=== PATIENT | female | born 1965 | race Hispanic/Latino ===

== ENCOUNTER 2023-03-03 07:11 | Emergency (ER) | payer BC ==
--- OUTSIDE RECORDS SUMMARY | 2023-03-03 07:15 | XMS REPORT | Continuity of Care Document ---
:[address] [facility] t Address [address] [place] [address] Care Team Providers Name Role Phone No MD, Pcp Primary Care Physician Unavailable SHAZIA PATEL Attending Clinician Unavailable Belkis Clancy APRN Attending Clinician [phone] Payers Payer Name Policy Type Policy Number Effective Date Expiration Date S ource GENERIC BCBS [id number] 2019 2019 00:00:00 00:00:00 [place] [id number] 2021 OUT OF STATE 00:00:00 Problems This patient has no known problems. Allergies, Adverse Reactions, Alerts Allergy Allergy Status Severity Reaction(s) Onset Inactive Treating Comm ents Source Name Type Date Date Clinician Penicill DA Active U 2018-08 [facility] 2[facility]17 [facility] [place] Social History Social Habit Start Date Stop Date Quantity Comments Source Sexual orientation Method ist [facility] identity [facility] Tobacco use and 2023-03-02 2023-03-02 Smokeless [facility] exposure 00:00:00 00:00:00 tobacco non-user Hospital Alcohol intake 2023-03-02 2023-03-02 Current drinker [facility] 00:00:00 00:00:00 of alcohol Hospital (finding) History of Social 2023-03-02 2023-03-[address] function 00:00:00 00:00:00 Hospital Exposure to 2022-12-31 2023-01-10 Not sure [facility] SARS-CoV-2 (event) 00:00:00 10:21:00 Sex Assigned At [birth year] [facility] 00:00:00 00:00:00 Hospital Smoking Status Start Date Stop Date Source Never smoked tobacco [facility] Medications Ordered Filled Start Stop Current Ordering Indication Dosage Frequency Signature Comments Components Source Medication Medication Date Date Medication? Clinician (SIG) Name Name tirzepatide Yes 10mg Q1W Inject 0.5 Methodi (Mounjaro) 7-12 mL ([address] 10 mg/0.5 13:48: total) Hospit a mL pen 51 under the l injector skin every 7 days. Tuesdays / AM Sod Yes DISPENSE [facility] Picosulfate 4-21 [facility] -Mag Ox-Cit 00:00: Acd 00 (Clenpiq) 10-3.5-12 MG-GM -GM/160ML solution Immunizations Ordered Immunization Filled Immunization Date Status Commen ts Source Name Name PFIZER COVID-19 MRNA 2020-12-20 Completed Meth odist VACCINATION 00:00:00 [facility] PFIZER COVID-19 MRNA 2020-11-29 Completed Meth odist VACCINATION 00:00:00 Hospital Vital Signs Vital Name Observation Time Observation Value Comments Source Systolic blood 2022-12-06 21:26:00 122 mm[Hg] [facility] Diastolic blood 2022-12-06 21:26:00 75 mm[Hg] [facility] Heart rate 2022-12-06 21:26:00 66 /min [facility] Body temperature 2022-12-06 21:26:00 36.28 [facility] Respiratory rate 2022-12-06 21:26:00 12 /min [facility] Body height 2022-12-06 21:26:00 157.5 cm [facility] Body weight 2022-12-06 21:26:00 77.111 kg [facility] BMI 2022-12-06 21:26:00 31.09 kg/m2 [facility] Systolic blood 2023-03-02 18:46:00 126 mm[Hg] [facility] pressure Diastolic blood 2023-03-02 18:46:00 60 mm[Hg] [facility] pressure Heart rate 2023-03-02 18:46:00 70 /min [facility] Body temperature 2023-03-02 18:46:00 36.56 Yumiko [facility] Respiratory rate 2023-03-02 18:46:00 17 /min [facility] Body height 2023-03-02 18:46:00 157.5 cm [facility] Body weight 2023-03-02 18:46:00 76.658 kg [facility] BMI 2023-03-02 18:46:00 30.91 kg/m2 [facility] Oxygen saturation in 2023-03-02 18:46:00 98 /min [facility] Arterial blood by Pulse oximetry Procedures Procedure Date / Time Performing Clinician Source Performed TYPE AND SCREEN 2023-03-02 19:49:00 [facility] ECG PRE/POST OP 2023-03-02 19:43:22 [facility] URINE CULTURE 2023-03-02 19:39:00 [facility] URINALYSIS SCREEN AND 2023-03-02 19:39:00 [facility] MICROSCOPY, WITH REFLEX TO CULTURE HEMOGLOBIN A1C 2023-03-02 19:11:00 [facility] CBC WITH PLATELET AND 2023-03-02 19:11:00 [facility] DIFFERENTIAL COMPREHENSIVE METABOLIC 2023-03-02 19:11:00 [facility] [address] hong [facility] PANEL ESTIMATED GFR 2023-03-02 19:11:00 [facility] Plan of Care Planned Activity Planned Date Details Comments Source Future Scheduled Test 2023-03-[address] [facility] 06:39:02 malignant neoplasm of colon (procedure) [code = 111014038] Future Scheduled Test 2023-03-03 Screening for [facility] 06:39:02 malignant neoplasm of colon (procedure) [code = 762436593] Future Scheduled Test 2023-03-03 Screening for [facility] 06:39:02 malignant neoplasm of colon (procedure) [code = 417562880] Future Scheduled Test 2023-03-03 Hepatitis C screening [facility] 06:39:02 (procedure) [code = 233738283] Future Scheduled Test 2023-03-03 [facility] 06:39:02 malignant neoplasm of cervix (procedure) [code = 972077747] Future Scheduled Test 2023-03-03 BRE[facility] CANCER [facility] 06:39:02 SCREENING [code = BREAST CANCER SCREENING] Future Scheduled Test 2023-03-03 [facility] 06:39:02 malignant neoplasm of colon (procedure) [code = 833578087] Future Scheduled Test 2023-03-03 [facility] 06:39:02 malignant neoplasm of colon (procedure) [code = 350859891] Future Scheduled Test 2023-03-03 SHINGLES VACCINES (1 [facility] 06:39:02 of 2) [code = SHINGLES VACCINES (1 of 2)] Future Scheduled Test 2023-03-03 COVID-19 VACCINE (3 - [facility] 06:39:02 Pfizer series) [code = COVID-19 VACCINE (3 - Pfizer series)] Future Scheduled Test 2023-03-[address] [facility] 06:39:02 [code = INFLUENZA VACCINE] Future Appointment 2023-03-08 Shazia Patel MD, [address] [facility] 12:00:00 [facility]; [address], [place] [address] Future Appointment 2023-03-08 Shazia Patel MD, [address] [facility] 12:00:00 [facility]; [address], [place] [address] Future Appointment 2023-03-08 Belkis Clancy APRN [facility] 12:00:00 [address] [facility] 3rd floor; [address] [facility], [place] [address] Procedure 2023-03-08 RESECTION, COLON, LOW Method [facility] 17:00:00 ANTERIOR, LAPAROSCOPIC Procedure 2023-03-08 CYSTO STENT INSERTION Method [facility] 17:00:00 Encounters Start End Encounter Admission Attending Care Care Encounter Source Date/Time Date/Time Type Type Clinicians Facility Department ID 2022-12-21 Outpatient [facility] [id number] [place] 13:47:09 [id number] [facility] 2022-12-10 Outpatient [facility] [id number] [place] 09:02:06 [id number] [facility] 2022-12-07 Outpatient [facility] [id number] [place] 09:47:23 [id number] [facility] 2022-12-06 Outpatient [facility] [id number] [place] 15:58:03 [id number] [facility] 2022-12-02 Outpatient [facility] [id number] [place] 10:23:19 [id number] [facility] 2022-11-30 Outpatient [facility] [id number] [place] 15:41:28 [id number] [facility] 2022-11-29 Outpatient [facility] [id number] [place] 16:41:49 [id number] [facility] 2022-11-25 Outpatient [facility] [id number] [place] 10:49:40 [id number] [facility] 2023-03-08 2023-03-08 Outpatient SHAZIA PATEL [facility] [id number] [place] 12:00:00 12:00:00 [facility] 2023-03-02 2023-03-02 Pre-Admiss Shazia Patelquiana [id number] [facility]i 13:00:00 14:00:00 Belkis Vigil [address] Testing 3.430.2.7 Hospit a .3.492700 l .8 2023-03-02 2023-03-02 Outpatient SHAZIA PATEL [facility] [id number] [place] 00:00:00 00:00:[address] 2023-01-10 2023-01-10 Office Shazia Patel SATHISH GORDILLO [id number] [place] 16:15:00 17:38:25 Visit TOWER 350.1.13.58 He [facility] [id number] [id number] 2023-01-10 2023-01-10 Out[facility] [id number] [place] 16:15:00 16:15:00 Health 2023-01-07 2023-01-07 [facility] [id number] [place] 13:00:00 13:00:00 [facility] 2022-12-23 2022-12-23 Outpatient PATEL, [facility] [id number] [place] 12:30:00 12:30:00 [facility] 2022-12-06 2022-12-06 Office Patel, Shazia GORDILLO [id number] [place] 16:15:00 16:51:47 Visit TOWER 350.1.13.58 [facility] [id number] 2022-12-03 2022-12-03 Outpatient PATEL, SHAZIA [facility] [id number] [place] 11:15:00 11:15:00 Health Results Test Description Test Time Test Comments Results Result Comments Source Urine culture 2023-03-02 21:36:00 Test Item Value Reference Range Interpretation Comme nts Urine culture (test code = 9841334) SEE COMMENT Bacteriuria screen negative. Hindu ShantiUTERUS,OTHER THAN PROLAPSE/[id number] 16:05:00 RUN DATE: 08/09/19 [facility] PAGE 1 RUN TIME: 1716 Specimen Inquiry RUN USER: INTERFACE -PATIENT: CAMPOS HIDALGO LOC: SARAH Rodriguez #: [id number] AGE/SX: 53/F ROOM: [facility] RE08/08/19REG DR: Stan Kohler MD : 63 BED: A DIS: 08/09/19 STATUS: DIS Carlyle TLOC: SPEC #: [id number] RECD: 08/08/19 STATUS: SOUEmma REQ #: [id number] STEPHANIE: 08/08/19- SUBM DR: Stan Kohler MD ENTERED: 08/08/19 SP TYPE: UTERUSOTH OT DR: ORDERED: LEVEL V SURGICA CODES: C22316 - UTERUS, NOS PROCEDURES: LEVEL V SURGICA (Incomplete) TISSUES: UTERUS, NOS - UTERUS, CERVIX AND BILATERAL FALLOPIAN TUBES CLINICAL HISTORY 53 year old, menorrhagia (wpd) FINAL DIAGNOSIS Uterus, bilateral fallopian tubes, hysterectomy and bilateral salpingectomy: cervix - parakeratosis, no dysplasia identified endometrium - benign, proliferative phase myometrium - adenomyosis uterine serosa - no significant pathologic alteration right and left fallopian tubes - benign paratubal cysts CPT code(s): 05409 [facility] 08/09/19 GROSS DESCRIPTION ANATOMIC SOURCE OF TISSUE (per Requisition): Uterus, cervix, bilateral fallopian tubes The specimen is received in formalin in a container, labeled with the patient's name and designated "uterus, cervix, bilateral fallopian tubes". It consists of an 8.5 x 7 x 4.5 cm hysterectomy specimen with bilateral fallopian tubes with fimbriae attached. The uterus weighs 104 gm. The serosa is chris, smooth, and glistening and contains a 2.7 cm subserosal, nodular lesion in the left upper posterior wall. The cervical external os measures 1.1 cm. The portio vaginalis measures 2.9 cm. Blankbook Stitching Machine Operator sections are submitted in A1. The endometrium measures 0.2 cm and contains ill-defined, submucosal, firm lesions in both the anterior and posterior carter measuring up to 2.0 cm. The myometrium measures up to 2.7 cm thick and contains additional ill-defined, firm lesions measuring up to 3.5 cm and a 0.4 cm intramural, firm nodule in the lower anterior CONTINUED ON NEXT PAGE RUN DATE: 08/09/19 [facility] PAGE 2 RUN TIME: 1715 Specimen Inquiry RUN USER: INTERFACE SPEC #: [id number] PATIENT: CAMPOS HIDALGO #[id number] (Continued) GROSS DESCRIPTION (Continued) wall. Blankbook Stitching Machine Operator sections are submitted in A2 and A3. The right fallopian tube with fimbria measures 8 x 0.8 x 0.8 cm and contains a 1.5 cm semi-translucent paratubal cyst. The entire fimbria and two cross-sections of the tube with the cysts are subm itted in A4. The left fallopian tube with fimbria measures 8 x 0.5 x 0.5 cm and contains paratubal cysts measuring up to 0.8 cm and parafimbrial yellow tissue measuring up to 1.0 cm. The entire fimbriawith the yellow tissue and two cross- sections of the tube with the cysts are submitted in A5. ken/keron10/09/18 @ 1432 Signed Shelia Noland MD 08/09/19 1605 END OF REPORT [id number] 07:17:00 Test Item Value Reference Range Interpretation Comments GLUBED (test code = GLUBED) 106 mg/dL 65-110 N HGB [id number] 05:55:00 Test Item Value Reference Range Interpretation Comments HEMOGLOBIN (test code = HGB) 10.1 g/dL 10.7-13.9 L HEMATOCRIT (test code = HCT) 32.8 % 32.1-42.1 N [id number] 21:58:00 Test Item Value Reference Range Interpretation Comments GLUBED (test code = GLUBED) 131 mg/dL 65-110 H [id number] 10:55:00 Test Item Value Reference Range Interpretation Comments GLUBED (test code = GLUBED) 112 mg/dL 65-110 H [id number] 06:38:00 Test Item Value Reference Range Interpretation Comments GLUBED (test code = GLUBED) 83 mg/dL 65-110 N UR HCG [id number] 16:19:00 Test Item Value Reference Range Interpretation Comments UR HCG QUAL (test NEGATIVE 1. Very di lute urine code = HCGQLU) specimens, as indicated by a lowspecific g ravity, may not contain rep resentative levels ofhCG. 2 . False negative result s may occur when the levels of hCGare below the sensi tivity level of the test. If is still suspec guadalupe, a first morningurine sp ecimen should be colle cted 48 hours later and tested. Notes Date/Time Note Provider Source 2019-08-09 07:15:00-00:00 [facility] Robotic Assisted MOSAICIST Post Prog REPORT#:[id number] REPORT STATUS: Signed DATE:08/09/19 TIME: 714 PATIENT: CAMPOS HIDALGO UNIT #: [id number] ROOM/BED: [address] : 64 AGE: 53 SEX: F ATTEND: Yinka Kohler MD ADM AUTHOR: Stan Kohler MD * ALL edits or amendments must be made on the [employer]/computer document * General Post-op: day 1 Status post robotic assisted: TLH/Bilat. Salping ectomy, SOLYX SLING Subjective Patient reports: Yes: complaints, ambulating, flatus/bowel movement, pain controlled, tolerating diet. No: abdominal pain, chills, fever, headach e, heartburn, nausea, pelvic pain, vaginal bleeding, voiding/urinating, vomit ing. Objective Physical Exam VS/I O Last Documented: Result Date Time Pulse Ox 97 08/09 423 B/P 106/66 08/09 423 B/P Mean 79.6 08/09 423 O2 Delivery Room air 08/09 423 Temp 98.8 08/09 423 Pulse 95 08/09 423 Resp 18 08/09 423 O2 Flow Rate 8.253841 08/08 1000 Vital Signs Date Temp Pulse Resp B/P B/P Mean Pulse Ox FiO2 08/08-08/09 97.7-98.8 83-96 12-24 97-130/53-77 76.2-94.9 10-100 24 hour I O ending at 0700: 08/09 0700 08/08 1900 Intake Total 3200.00 1150.00 Output Total 2575 1200 Balance 625.00 -50.00 Intake, IV 1550.00 1150.00 Intake, Oral 1400 Intake, Tube 250 Irrigant Number Voids 3 Output, 100 Estimated Blood Loss Output, Urine 2475 1200 Patient 75.6 kg Weight Weight Standing scale Measurement Method Patient Weight Weight (lb): 166 Weight (oz): 10.71 Weight (kg): 75.600 Medications: Active Meds + DC'd Last 24 Hrs Acetaminophen 650 MG Q6H PRN PRN PO Docusate Sodium 100 MG BID PRN PRN PO Hydrocodone Bitart/Acetaminophen 1 TAB ONCE ONE PO (DC) Hydrocodone Bitart/Acetaminophen 1 TAB Q4H PRN P O Ibuprofen 600 MG Q6H PRN PRN PO Lactated Ringer's 1,000 ML ASDIR IV Ondansetron HCl 4 MG Q6H PRN PRN IV Promethazine HCl 25 MG Q6H PRN PRN IM Simethicone 160 MG Q6H PRN PRN PO Glycopyrrolate 0 .STK-MED ONE .ROUTE (DC) Ketorolac Tromethamine 0 .STK-MED ONE .ROUTE (DC ) Neostigmine [place] 0 .STK-MED ONE .ROUTE (DC) Ondansetron HCl 0 .STK-MED ONE .ROUTE (DC) Fentanyl Citrate 0 .STK-MED ONE .ROUTE (DC) Hydrocodone Bitart/Acetaminophen 2 TAB ONCE PRN PO (DC) Hydromorphone HCl 0.5 MG PACU Q5MIN PRN PRN IV ( DC) Meperidine HCl 12.5 MG PACU ASDIR PRN PRN IV (DC ) Morphine Sulfate 4 MG PACU Q15MIN PRN PRN IV (DC ) Ondansetron Base 4 MG ONCE PRN SL (DC) Ondansetron HCl 4 MG PACU ONCE PRN IV (DC) Ondansetron HCl 4 MG ONCE PRN IV (DC) Promethazine HCl 12.5 MG PACU ONCE PRN IM (DC) Acetaminophen 1,000 MG PREOP PO (DC) Celecoxib 400 MG PREOP PO (DC) Gabapentin 400 MG PREOP PO (DC) Lactated Ringer's 1,000 ML PREOP IV (DC) Levofloxacin/Dextrose 100 ML PREOP IV (DC) Metronidazole/Sodium Chloride 100 ML PREOP IV (D C) Phenazopyridine HCl 100 MG PREOP PO (DC) General appearance: alert, awake Wound/incision: Location: ABDOMEN Site condition: edges approximated, no drainage , no ecchymosis, no erythema Abdomen: normal bowel sounds, non-tender, soft Extremities: no calf tenderness, no edema Results Findings/Data: Laboratory Tests 08/08 08/08 2146 1039 Chemistry POC Glucose (65 - 110 mg/dL) 131 H 112 H Laboratory Tests 08/09 0445 Hematology Hgb (10.7 - 13.9 g/dL) 10.1 L Hct (32.1 - 42.1 %) 32.8 Diagnosis, Assessment Plan Free Text A P: POD 1, R TLH BS, SOLYX SLING, CYSTOSCOPY. PAIGABBY T HAD URINARY RETENTION AFTER REMOVAL OF PRESCOTT. PRESCOTT REINSERTED LAST NIGHT, D C THIS AM WITH VOIDING TRIAL. PATIENT FAILED THE VOIDING T RIAL, WILL DC HOME WITH PRESCOTT AND LEG BAG. FOLLOW UP ON TUESDAY FOR PRESCOTT REMOVAL. PATIENT HAS DIABETES, CONTINUE METFORMIN. VITALS ARE NORMAL, LABS, I/O, H H REVIEWED. ABDOMEN IS SOFT, NON DISTENDED, NON TENDER. PLAN: DC HOME WITH PRESCOTT. at [address] [facility] #:[id number] END OF REPORT 2019-08-08 09:16:00-00:00 [facility] ([facility]) Full Op Note REPORT#:[id number] REPORT STATUS: Signed DATE:08/08/19 TIME: 915 PATIENT: CAMPOS HIDALGO UNIT #: [id number] ROOM/BED: : 64 AGE: 53 SEX: F ATTEND: Yinka Kohler MD ADM AUTHOR: Stan Kohler MD * ALL edits or amendments must be made on the el [employer]/computer document * Operative Report Start date: 08/08/19 Start time: 755 Pre-procedure diagnosis: MENORRHAGIA STRESS URINARY INCONTINENCE Post-procedure diagnosis: SAME Procedures performed: R TLH BS, SOLYX SLING, CYSTOSCOPY Technique/Procedure: The patient was taken to the operating r oom and was placed in supine position. General anesthesia was given and the patient was placed in dorsal lithotomy position. She was prepped and draped in a steril e fashion and a time out was performed. A prescott catheter was placed into the bladder and drained clear urine. An examination under anesthesia was performed. A we ighted speculum was placed in the vagina and the anterior vaginal wall was retracted with a Daley speculum. The anterior lip of the cervix w as grasped with a single-tooth tenaculum. The uterus sounded to 7 cm. The cervix was gradually dilate d and a LINA II uterine manipulator with a 6 cm tip was introduced into the cavity. The intracavitary balloon was inflated. The tenaculum and the weighted speculum were removed and the cervical cap was placed against the cervix. The vaginal occluder balloon was then inflated. Marcaine was infiltrated in the umbilicus and a 4 cm incision was made. The incision was extended throug h the fascia and peritoneum. An Jose retractor was introduced to retract the incision. A [employer] preloaded tieh trocars and AIrSeal was attached to the retractor. Pneuomperitoneum was created. The robotic camera was introduced throug the prot. The upper abdomen was inspected and then the patient was placed in deep Trendelenburg pos ition. The pelvic anatomy was inspected. Ports for the robotic arms were place d in the right and left lower abdomen and an assistant professor of art por t was introduced in the right mid abdomen. Pitressin was injected into the uterus for hemostasis. The robot was then docked. The left round ligament was coagulated and transected. The left mesosalpinx was coagulated and transected. The left ovarian liga ment was also coagulated and transected. The anterior leaf of the bro ad ligament was dissected to develop a bladder flap. The posterior leaf of the broad li gament was dissected to the level of the uterosacral ligament. The same proc edure was done on the right side. The bladder was completely mobilized past the superior aspect of the vagina. The uterine vessels were skeletonized bi laterally, coagulated, and transected. The parametrial tissue was also coag ulated and transected. A circumferential incision was made on the superior aspect of the vagina and the uterus and cervix were amputated. The uterus was delivered vaginally and w as sent for pathologic evaluation. The vaginal cuff was closed in a continuous running fashion using V-Loc suture. Airtight closure of the vagi nal cuff was confirmed. The intraperitoneal pressure was decreased and hemostasis was noted. The pelvis was irrigated. Both ureters were visualized and noted to be peristalsing. The robot was undocked. The pneumoperitoneum was evacuated and all ports were removed. The fascia at the umbilicus was reappro ximated with 0 Vicryl suture. The skin incisions were all closed with 3-0 Juniata cryl suture. The midurethra was identified by applyin g gentle traction to the Prescott. Saline was infilterated in the periureethral vaginal mu cosa for hydrodissection. A vertical incisin was made on the vaginal mucosa in the midline and dissection was carried out in the periurethral tiss ue to the pubic ramus. Solyx sling was introduced in the obturator fascia with appropri ate tensioning. The prescott catheter was remov ed and cystoscope was carefully introduced into the bladder. Careful examination of the bladder reve aled bilateral ureteral jets and no injury to the bladder . The cystoscope was removed and the prescott catheter was replaced. The patient tolerated the procedure well . General anesthesia was reversed, the patient was extubated and taken to the recovery room in good condition. All counts were correct x 2. The patient received Ancef for prophylactic antibiotics preoperatively. Primary Surgeon: Stan Kohler Shoeshiner(s): Rodolfo Morales Anesthesia: general anesthesia Operative findings: Normal upper abdomen, normal uterus, tubes, ovaries with left ovary adherent to the omentum. normal bladder interior with bilate ral ureteral jets Complications: none Estimated blood loss in ml's: 100 cc Specimens removed/altered: uterus with cervix, b oth fallopian tubes Drain(s)/tube(s): prescott Implant(s): none Fluids: 1000 cc Urine output: 200 cc Approach: laparoscopic Disposition: PACU Counts: Sponge count: correct at [address] [facility] #:[id number] END OF REPORT 2019-08-07 14:52:00-00:00 [id number] [facility] [address] [place], [place] [address] PATIENT NAME: CAMPOS HIDALGO ADMIT DATE: 07/22 04/09 ACCOUNT NO: [id number] ROOM NO: 2646 AGE: 53 SEX: F ADMITTING PHYSICIAN: Stan Kohler MD ATTENDING PHYSICIAN: Stan Kohler MD Order: [id number] Test Reason : PRE- OP Test Date/Time Stamp: TueAug 07 2019 14:52:57 Blood Pressure : / mmHG Vent. Rate : 065 BPM Atrial Rate : 065 BPM P-R Int : 168 ms QRS Dur : 074 ms QT Int : 426 ms P-R-T Axes : 042 020 025 degree s QTc Int : 443 ms Normal sinus rhythm Normal ECG No previous ECGs available Confirmed by ZULMA WOODS, KRYSTLE ([id number]) on 019 8:13:16 AM Referred By: Stan Kohler Confirmed by:KRYSTLE LEE MD Electronically Signed by Krystle Qureshi MD on 1 10/10/18 at 0813 PATIENT NAME: CAMPOS HIDALGO [id number]
[2023-03-03 07:50] LABS: Absolute Lymphocytes (CBC) 2.1 K/uL (0.7-4.9); Hematocrit 41.3 % (36.0-45.0); MCV 83.5 fL (80-100); MPV 10.4 fL (7.6-11.3); RBC Red Blood Cell Count 4.94 M/uL (3.86-4.86)
[2023-03-03 08:13] LABS: ALT/SGPT 36 U/L (13-56); AST/SGOT 52 U/L (15-37); Albumin 3.5 g/dL (3.4-5.0); Alkaline Phosphatase 86 U/L (45-117); BUN Blood Urea Nitrogen 12 mg/dL (7-18); Bicarbonate 26 mEq/L (21-32); Bilirubin Total 1.5 mg/dL (0.2-1.0); Glomerular Filtration Rate 104 ml/min (=/>90); Glucose Level 135 mg/dL (74-106); Lipase 65 U/L (13-75); Potassium 3.3 mEq/L (3.5-5.1); Protein, Total 7.4 g/dL (6.4-8.2); Sodium Level 139 mEq/L (136-145)
[2023-03-03 08:14] LABS: Troponin High Sensitivity < 3.0 pg/mL (<58.9)
--- NOTE | 2023-03-03 08:19 | RAD REPORT ---
EXAM DESCRIPTION: US - Abdomen Exam Limited - 03/03/2023 8:01 am CLINICAL HISTORY: Abdominal pain COMPARISON: CT abdomen pelvis 11/15/2022. TECHNIQUE: Sonographic grayscale and color flow images of the abdomen were obtained. FINDINGS: Gallbladder size is normal. Multiple echogenic shadowing gallstones. No wall thickening or pericholecystic fluid. Common bile duct is normal in caliber, 3 millimeter, With no common duct ston e identified. Visualized aspects of the liver show diffuse parenchymal hyperechogenicity suggesting steatosis. IMPRESSION: Cholelithiasis. No sonographic findings to suggest acute cholecystitis. Diffuse hepatic parenchymal hyperechogenicity suggesting steatosis.
--- NOTE | 2023-03-03 08:32 | ER ---
Nurse's Notes [facility] Name: Pao Hidalgo Age: 57 yrs Sex: Female : 1965 Arrival Date: 03/03/2023 Time: 07:11 Bed 20 Private MD: Tigre Brown Diagnosis: Biliary colic;Cholelithiasis Presentation: 03/03 07:25 Chief complaint: Patient states: woke up with pain between shoulder blades and iw radiating to RUQ, is due to have colon resection on Tuesday at [facility]. Coronavirus screen: At this time, the client does not indicate any symptoms associated with coronavirus-19. Ebola Screen: Patient negative for fever greater than or equal to 101.5 degrees Fahrenheit, and additional compatible Ebola Virus Disease symptoms Patient denies exposure to infectious person. Patient denies travel to an Ebola-affected area in the 21 days before illness onset. No symptoms or risks identified at this time. 07:25 Method Of Arrival: Ambulatory iw 07:28 Initial Sepsis Screen: Does the patient meet any 2 criteria? No. Patient's initial iw sepsis screen is negative. Does the patient have a suspected source of infection? No. Patient's initial sepsis screen is negative. Risk Assessment: Do you want to hurt yourself or someone else? Patient reports no desire to harm self or others. Onset of symptoms was March 03, 2023. 07:28 Acuity: OSMAN 3 iw Historical: - Allergies: 07:28 PENICILLINS; iw - Home Meds: 07:28 Mounjaro subcutaneous [Active]; iw - PMHx: 07:28 Diabetes mellitus; iw - PSHx: 07:28 hysterectomy; tubal ligation; iw - Immunization history:: Client reports receiving the 2nd dose of the Covid vaccine. - Social history:: Smoking status: Patient denies any tobacco usage or history of. Screenin:36 [facility] ED Fall Risk Assessment (Adult) History of falling in the last 3 months, ap3 including since admission No falls in past 3 months (0 pts). Abuse screen: Denies threats or abuse. Nutritional screening: No deficits noted. Tuberculosis screening: No symptoms or risk factors identified. Assessment: 07:46 General: Appears in no apparent distress. Behavior is calm, cooperative, appropriate ap3 for age. Pain: Complains of pain in thoracic area Pain radiates to right lower quadrant Pain began suddenly, 2 hours ago. Neuro: Level of Consciousness is awake, alert, obeys commands, Oriented to person, place, time, situation. Cardiovascular: Patient's skin is warm and dry. Respiratory: Airway is patent Respiratory effort is even, unlabored, Respiratory pattern is regular, symmetrical. Vital Signs: 07:25 BP 117 / 62; Pulse 70; Resp 16; Temp 98.1; Pulse Ox 98% on R/A; Weight 74.84 kg; Height iw 5 ft. 2 in. ; Pain 5/10; 08:04 BP 107 / 75; Pulse 65; Pulse Ox 96% on R/A; ap3 07:25 Body Mass Index 30.18 (74.84 kg, 157.48 cm) iw 07:25 Pain Scale: Adult iw ED Course: 07:12 Patient arrived in ED. am2 07:12 Tigre Brown MD is Private Physician. am2 07:17 Danielle Carrington MD is Attending Physician. sd2 07:28 Triage completed. iw 07:29 Arm band placed on. iw 07:34 Penny Howe, JU is Primary Nurse. ap3 07:36 Patient has correct armband on for positive identification. Bed in low position. Call ap3 light in reach. Adult w/ patient. threat monitoring analyst on. Pulse ox on. NIBP on. 07:36 Patient maintains SpO2 saturation greater than 95% on room air. ap3 07:46 Initial lab(s) drawn, by me, sent to lab. Inserted saline lock: 22 gauge in right ap3 antecubital area, using aseptic technique. Blood collected. 08:02 US Abdomen Limited: RUQ to eval gallbladder In Process Unspecified. EDMS 08:31 Danilo Kaur MD is Referral Physician. sd2 08:43 Provided Education on: discharge. ap3 08:43 No provider procedures requiring assistance completed. IV discontinued, intact, ap3 bleeding controlled, No redness/swelling at site. Pressure dressing applied. Administered Medications: No medications were administered Medication: 08:43 VIS not applicable for this client. ap3 Outcome: 08:31 Discharge ordered by . sd2 08:43 Discharged to home ambulatory, with family. ap3 08:43 Condition: good 08:43 Discharge instructions given to patient, family, Instructed on discharge instructions, follow up and referral plans. Demonstrated understanding of instructions, follow-up care. 08:43 Patient left the ED. ap3 Signatures: Dispatcher [employer] Char Alex RN RN iw Moreno, Amanda am2 Penny Howe RN RN ap3 Danielle Carrington MD MD sd2
--- NOTE | 2023-03-03 08:32 | EDPHYS ---
Physician Documentation [facility] Name: Pao Hidalgo Age: 57 yrs Sex: Female : 1965 Arrival Date: 03/03/2023 Time: 07:11 Bed 20 Private MD: Tigre Brown ED Physician Danielle Carrington HPI: 03/03 07:26 This 57 yrs old Female presents to ER via Unassigned with complaints of Chest sd2 Pain, Back Pain, Abdominal Pain. 07:26 57 yo F presents with CC of midsternal CP radiating to between her shoulder blades that sd2 then moved to the RUQ of her abdomen starting early this AM. Reports taking Tylenol at 0545 and has since improved. Denies associated fever, n/v/d or urinary symptoms. 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 She is scheduled to have a colon resection performed this upcoming Tuesday at [facility] for previous diverticulitis. States this does not feel similar. Last ate 2 fried chicken last night before bed. . Historical: - Allergies: 07:28 PENICILLINS; iw - Home Meds: 07:28 Mounjaro subcutaneous [Active]; iw - PMHx: 07:28 Diabetes mellitus; iw - PSHx: 07:28 hysterectomy; tubal ligation; iw - Immunization history:: Client reports receiving the 2nd dose of the Covid vaccine. - Social history:: Smoking status: Patient denies any tobacco usage or history of. ROS: 07:26 Constitutional: Negative for fever, chills, and weight loss, Eyes: Negative for injury, sd2 pain, redness, and discharge, Cardiovascular: Negative for chest pain, palpitations, and edema, Respiratory: Negative for shortness of breath, cough, wheezing. 07:26 MS/Extremity: Negative for injury and deformity, Skin: Negative for injury, rash, and discoloration, Neuro: Negative for headache, numbness and tingling. 07:26 Abdomen/GI: Positive for abdominal pain, Negative for nausea, vomiting, and diarrhea. Exam: 07:26 Constitutional: This is a well developed, well nourished patient who is awake, alert, sd2 and in no acute distress. Head/Face: Normocephalic, atraumatic. Eyes: EOMI, normal conjunctiva bilaterally Chest/axilla: Normal chest wall appearance and motion. Nontender with no deformity. Cardiovascular: Regular rate and rhythm with a normal S1 and S2. No gallops, murmurs, or rubs. 2+ distal pulses. Respiratory: Lungs have equal breath sounds bilaterally, clear to auscultation and percussion. No rales, rhonchi or wheezes noted. No increased work of breathing, no retractions or nasal flaring. Abdomen/GI: Soft, ND, mild TTP of RUQ with negative Garcia's sign, no rebound or guarding Back: No spinal tenderness. No costovertebral tenderness. Full range of motion. Skin: Warm, dry with normal turgor. Normal color with no rashes, no lesions, and no evidence of cellulitis. MS/ Extremity: Pulses equal, no cyanosis. Neurovascular intact. Full, normal range of motion. Ambulatory without difficulty. Psych: Awake, alert, with orientation to person, place and time. Behavior, mood, and affect are within normal limits. 07:46 ECG was reviewed by the Attending Physician. NSR, rate 76, no STEMI criteria sd2 Vital Signs: 07:25 BP 117 / 62; Pulse 70; Resp 16; Temp 98.1; Pulse Ox 98% on R/A; Weight 74.84 kg; Height iw 5 ft. 2 in. ; Pain 5/10; 08:04 BP 107 / 75; Pulse 65; Pulse Ox 96% on R/A; ap3 07:25 Body Mass Index 30.18 (74.84 kg, 157.48 cm) iw 07:25 Pain Scale: Adult iw MDM: 07:17 Patient medically screened. sd2 07:26 Differential diagnosis: reflux, AAA, dissection, ACS, GB pathology, diverticulitis, MSK sd2 among others. Data reviewed: vital signs, nurses notes. 07:46 Data reviewed: EKG. sd2 08:28 HEART Score: History: Slightly Suspicious (0), ECG: Normal (0), Age: > 45 and < 65 sd2 years (1), Risk Factors: 1 or 2 risk factors (1), Troponin: < or = 1 x Normal Limit (0), Total Score = 2. Data reviewed: lab test result(s), radiologic studies, ultrasound. Management of patient was discussed with the following: Geospatial Intelligence Analyst: Dr. Kaur, General Surgery. I considered the following discharge prescriptions or medication management in the emergency department Pain Medications: At this time, prescription pain medications are not recommended. Test considered but Not performed: CT: not indicated due to US providing results needed and normal labs. Counseling: I had a detailed discussion with the patient and/or guardian regarding: the historical points, exam findings, and any diagnostic results supporting the discharge/admit diagnosis, lab results, radiology results, the need for outpatient follow up, to return to the emergency department if symptoms worsen or persist or if there are any questions or concerns that arise at home. ED course: Discussed results with Dr. Kaur, who recommends discharge home. States he will call in meds for patient for home including GI cocktail and speak with her surgeon at [facility] to take her gallbladder out this upcoming Tuesday as well with her sigmoid colon resection. Pt and at advised of all results and plan for outpatient follow up. She is in agreement and pain is well controlled. Verbalizes understanding of discharge plan including dietary modifications and strict return precautions. . 03/03 07:24 Order name: CBC with Diff; Complete Time: 08:19 sd2 03/03 07:24 Order name: CMP; Complete Time: 08:19 sd2 03/03 07:24 Order name: Troponin High Sensitivity; Complete Time: 08:19 sd2 03/03 07:24 Order name: Lipase; Complete Time: 08:19 sd2 03/03 07:24 Order name: US Abdomen Limited: RUQ to eval gallbladder; Complete Time: 08:19 sd2 03/03 07:24 Order name: EKG - Nurse/Tech; Complete Time: 07:37 sd2 Administered Medications: No medications were administered Disposition Summary: 03/03/23 08:31 Discharge Ordered Location: Home sd2 Problem: new sd2 Symptoms: have improved sd2 Condition: Stable sd2 Diagnosis - Biliary colic sd2 - Cholelithiasis sd2 Followup: sd2 - With: Danilo Kaur MD - When: 2 - 3 days - Reason: Recheck today's complaints, Continuance of care Discharge Instructions: - Discharge Summary Sheet sd2 - Cholelithiasis sd2 - Gallbladder Eating Plan sd2 Forms: - Medication Reconciliation Form sd2 - Thank You Letter sd2 - Antibiotic Education sd2 - Prescription Opioid Use sd2 - Patient Portal [email or web address] sd2 Signatures: Dispatcher [employer] Char Alex RN RN iw Dunlop, Stephanie, MD MD sd2
[2023-03-03 08:49] VITALS: BP 107/75; TEMP 98.1; O2SAT 96
--- NOTE | 2023-03-04 12:52 | EKG ---
Test Date: 2023-03-03 Test Time: 07:36:02 Whiteprinting Machine Operator: [place] MEASUREMENT RESULTS: Intervals: Rate: 76 ND: 198 QRSD: 74 QT: 388 QTc: 436 [place]: P: 57 ND: 198 QRS: 3 T: 53 INTERPRETIVE STATEMENTS: Normal sinus rhythm Normal ECG Compared to ECG 01/01/2022 09:30:42 No significant changes Electronically Signed On 03-04-23 12:49:59 CDT by Wolf Haji
== END 2023-03-03 08:43 | disposition home or self-care (01) ==
LOC: ER 07:11
DX: K80.40 Calculus of bile duct with cholecystitis, unspecified, without obstruction (principal); R07.9 Chest pain, unspecified; E11.9 Type 2 diabetes mellitus without complications; Z79.4 Long term (current) use of insulin; Z88.0 Allergy status to penicillin
CPT/HCPCS: 36415; 76705; 80053; 83690; 84484; 85025; 93005; 99285

== ENCOUNTER 2023-05-25 19:09 | Inpatient (IN) | payer BC ==
--- OUTSIDE RECORDS SUMMARY | 2023-05-25 19:12 | XMS REPORT | Continuity of Care Document ---
:1965 Author Organization [facility] t Address [address] [place] [address] [place] [address] Care Team Providers Name Role Phone Kevin Caldwell MD, Tigre Glover Primary Care Physician [phone] SHAZIA PATEL Attending Clinician Unavailable Genet Guo RN Attending Clinician Unavailable Mini Faulkner MD Attending Clinician Belkis Clancy APRN Attending Clinician [phone] SHAZIA PATEL Admitting Clinician Unavailable Payers Payer Name Policy Type Policy Number Effective Date Expiration Date S ource GENERIC BCBS [id number] 2019 2019 00:00:00 00:00:00 [place] [id number] 2021 OUT OF STATE 00:00:00 Problems Condition Condition Condition Status Onset Resolution Last Treating Co mments Source Name Details Category Date Date Treatment Clinician Date Diverticul Diverticul Disease Active 0 M ethodi itis itis 18 00:00: Hospita 00 l Allergies, Adverse Reactions, Alerts Allergy Allergy Status Severity Reaction(s) Onset Inactive Treating Comm ents Source Name Type Date Date Clinician Penicill DA Active U 2018- [facility] [place] Social History Social Habit Start Date Stop Date Quantity Comments Source Gender identity [facility] Alcohol intake 2023-03-10 2023-03-10 .57 /d [facility] 00:[facility]:00:00 Hospital History of Social 2023-03-10 2023-03-[address] function 00:00:00 00:00:00 Hospital Tobacco use and 2023-03-02 2023-03-02 Smokeless [facility] exposure 00:00:00 00:00:00 tobacco non-user Hospital Exposure to 2022-12-31 2023-01-10 Not sure [facility] SARS-CoV-2 (event) 00:00:00 10:21:00 Sex Ass[birth year] At [birth year] [facility] 00:00:00 00:00:00 Hospital Smoking Status Start Date Stop Date Source Never smoked tobacco [facility] Medications Ordered Filled Start Stop Current Ordering Indication Dosage Frequency Signature Comments Components Source Medication Medication Date Date Medication? Clinician (SIG) Name Name tirzepatide 2022- No 10mg Q1W Inject 0.5 [facility] (Mounjaro) 7-20 07-20 mL ([address] 10 mg/0.5 13:22: 00:00 total) Hospi ta mL pen 17 :00 under the l injector skin every 7 days. Tuesdays / HYDROcodone Yes [id number] 1{tbl} Q6H Take 1 UT -acetaminop 7-20 tablet by Hea [facility] ([place]) 00:00: mouth 5-325 MG 00 every 6 tablet (six) hours if needed for severe pain. HYDROcodone Yes [id number] 1{tbl} Q6H Take 1 UT -acetaminop 7-20 tablet by Iron.ioa lt hen ([place]) 00:00: mouth 5-325 MG 00 every 6 tablet (six) hours if needed for severe pain. acetaminoph 2022- No 500mg Q4H Take 1 Me thodi en 7-20 08-[address] (TYLENOL) 00:00: 04:59 (500 mg [facility] 500 MG 00 :00 total) by l tablet mouth every 4 (four) hours for 30 days. gabapentin 2022- No 300mg Q.[id number] Take 1 [facility] (NEURONTIN) 03-[id number] 300 mg 00:00: 04:59 3D (300 mg Hospita capsule 00 :00 total) by l mouth 3 (three) times a day for 30 days. methocarbam 2022- No 500mg Q.25D Take 1 M ethodi oL 03-[address] (ROBAXIN) 00:00: 04:59 (500 mg [facility] 500 MG 00 :00 total) by l tablet mouth 4 (four) times a day for 30 days. enoxaparin 2022- No 40mg QD Inject 0.4 [facility] (LOVENOX) 03-10 08-18 mL ([address] 40 mg/0.4 00:00: 04:59 total) Hospi ta mL syringe 00 :00 under the l skin daily for 28 days. ciprofloxac 2022- No 500mg Q.5D Take 1 Me thodi in (Cipro) 03-[address] 500 MG 00:00: 04:59 (500 mg Hospita tablet 00 :00 total) by l mouth 2 (two) times a day for 10 days. tirzepatide Yes 10mg Q1W Inject 0.5 [facility] (Mounjaro) 7-12 mL ([address] 10 mg/0.5 13:48: total) Hospit a mL pen 51 under the l injector skin every 7 days. Tuesdays / Na Yes [id number] DISPENSE [facility] Sulfate-K 02-25 ONE KIT Health Sulfate-Mg 00:00: Sulf 00 (Suprep Bowel Prep Kit) 17.5-3.13-1 .6 GM/177ML solution metroNIDAZO Yes [id number] Take ONE UT LE (Flagyl) 02-25 TAB by Health 500 MG 00:00: mouth at tablet 00 1:00pm, 2:00pm and at 8:00PM on the day prior to surgery Na Yes [id number] DISPENSE [facility] Sulfate-K 02-25 ONE KIT Health Sulfate-Mg 00:00: Sulf 00 (Suprep Bowel Prep Kit) 17.5-3.13-1 .6 GM/177ML solution metroNIDAZO Yes [id number] Take ONE UT LE (Flagyl) 02-25 TAB by Health 500 MG 00:00: mouth at tablet 00 1:00pm, 2:00pm and at 8:00PM on the day prior to surgery neomycin 0 2023- No [id number] Take two UT (Mycifradin 02-25 08-07 tablets Heal th ) 500 MG 00:00: 04:59 (1000 mg) tablet 00 :00 by mouth at 1:00pm, 2:00pm and at 8:00PM on the day prior to surgery Sod Yes DISPENSE UT Picosulfate 4-21 ONE KIT Healt h -Mag Ox-Cit 00:00: Acd 00 (Clenpiq) 10-3.5-12 MG-GM -GM/160ML solution Sod Yes DISPENSE UT Picosulfate 4-21 ONE KIT Healt h -Mag Ox-Cit 00:00: Acd 00 (Clenpiq) 10-3.5-12 MG-GM -GM/160ML solution Sod Yes DISPENSE UT Picosulfate 4-21 ONE KIT Healt h -Mag Ox-Cit 00:00: Acd 00 (Clenpiq) 10-3.5-12 MG-GM -GM/160ML solution Immunizations Ordered Filled Immunization Date Status Comments Sour e Immunization Name Name PFIZER COVID-19 2020-12-20 Completed [facility] MRNA VACCINATION 00:00:00 [facility] PFIZER COVID-19 2020-11-29 Completed [facility] MRNA VACCINATION 00:00:00 [facility] PFIZER COVID-19 Unknown Completed [facility] MRNA VACCINATION [facility] PFIZER COVID-19 Unknown Completed [facility] VACCINATION Hospital Vital Signs Vital Name Observation Time Observation Value Comments Source Systolic blood 2022-12-06 21:26:00 122 mm[Hg] [facility] pressure Diastolic blood 2022-12-06 21:26:00 75 mm[Hg] [facility] pressure Heart rate 2022-12-06 21:26:00 66 /min [facility] Body temperature 2022-12-06 21:26:00 36.28 [facility] Respiratory rate 2022-12-06 21:26:00 12 /min [facility] Body height 2022-12-06 21:26:00 157.5 cm [facility] Body weight 2022-12-06 21:26:00 77.111 kg [facility] BMI 2022-12-06 21:26:00 31.09 kg/m2 [facility] Systolic blood 2023-03-10 12:50:07 124 mm[Hg] [facility] pressure Diastolic blood 2023-03-10 12:50:07 61 mm[Hg] [facility] pressure Heart rate 2023-03-10 12:50:07 103 /min [facility] Body temperature 2023-03-10 12:50:07 36.61 Yumiko [facility] Respiratory rate 2023-03-10 12:50:07 18 /min [facility] Oxygen saturation in 2023-03-10 12:50:07 93 /min [facility] Arterial blood by Pulse oximetry Body height 2023-03-08 15:23:00 160 cm [facility] Body weight 2023-03-08 15:23:00 73.936 kg [facility] BMI 2023-03-08 15:23:00 28.87 kg/m2 [facility] Systolic blood 2023-03-02 18:46:00 126 mm[Hg] Method [facility] pressure Diastolic blood 2023-03-02 18:46:00 60 mm[Hg] [facility] pressure Heart rate 2023-03-02 18:46:00 70 /min [facility] Body temperature 2023-03-02 18:46:00 36.56 Yumiko [facility] Respiratory rate 2023-03-02 18:46:00 17 /min [facility] Body height 2023-03-02 18:46:00 157.5 cm [facility] Body weight 2023-03-02 18:46:00 76.658 kg [facility] BMI 2023-03-02 18:46:00 30.91 kg/m2 [facility] Oxygen saturation in 2023-03-02 18:46:00 98 /min [facility] Arterial blood by Pulse oximetry Procedures Procedure Date / Time Performing Clinician Source Performed POC GLUCOSE 2023-03-10 12:52:00 Patel, [facility] HEMOGLOBIN & HEMATOCRIT 2023-03-10 11:35:00 Patel, [facility] POC GLUCOSE 2023-03-10 09:53:00 Patel, [facility] POC GLUCOSE 2023-03-10 04:43:00 Patel, [facility] POC GLUCOSE 2023-03-09 22:09:00 Patel, [facility] POC GLUCOSE 2023-03-09 16:52:00 Patel, [facility] POC GLUCOSE 2023-03-09 13:12:00 Patel, [facility] POC GLUCOSE 2023-03-09 10:05:00 Patel, [facility] HEMOGLOBIN & HEMATOCRIT 2023-03-09 09:59:00 Patel, [facility] BASIC METABOLIC PANEL 2023-03-09 09:59:00 Patel, [facility] MAGNESIUM LEVEL 2023-03-09 09:59:00 Patel, [facility] ESTIMATED GFR 2023-03-09 09:59:00 Patel, [facility] POC GLUCOSE 2023-03-09 04:42:00 Patel, [facility] POC GLUCOSE 2023-03-09 02:22:00 Patel, [facility] POC GLUCOSE 2023-03-09 00:04:00 Patel, [facility] MN AN ELECTIVE 2023-03-08 17:35:00 Xiang [facility] ENDOTRACHEAL AIRWAY RESECTION, COLON, LOW 2023-03-08 17:23:00 Patel, [facility] ANTERIOR, LAPAROSCOPIC CYSTO STENT INSERTION 2023-03-08 17:23:00 Tiffanie Shelton [facility] CHOLECYSTECTOMY, 2023-03-08 17:23:00 Heath Loyola [facility] LAPAROSCOPIC RESECTION, COLON, LOW 2023-03-08 17:00:00 Patel, [facility] ANTERIOR, LAPAROSCOPIC CYSTO STENT INSERTION 2023-03-08 17:00:00 Tiffanie Shelton [facility] POC GLUCOSE 2023-03-08 16:15:00 Jorge, [facility] CONSULT TO OSTOMY CARE 2023-03-08 15:51:14 Jorge, [facility] NURSE ABO AND RH CONFIRMATION 2023-03-08 15:44:00 Jorge, [facility] BY PROTOCOL SURGICAL PATHOLOGY 2023-03-08 13:06:00 Jorge, [facility] REQUEST TYPE AND SCREEN 2023-03-02 19:49:00 [facility] ECG PRE/POST OP 2023-03-02 19:43:22 [facility] ECG PRE/POST OP 2023-03-02 19:43:22 [facility] URINE CULTURE 2023-03-02 19:39:00 [facility] URINALYSIS SCREEN AND 2023-03-02 19:39:00 [facility] MICROSCOPY, WITH REFLEX TO CULTURE HEMOGLOBIN A1C 2023-03-02 19:11:00 [facility] CBC WITH PLATELET AND 2023-03-02 19:11:00 [facility] DIFFERENTIAL COMPREHENSIVE METABOLIC 2023-03-02 19:11:00 [facility] hong [facility] PANEL ESTIMATED GFR 2023-03-02 19:11:00 [facility] Plan of Care Planned Activity Planned Date Details Comments Source Future Scheduled 2023-04-29 Screening for [facility] Test 22:32:24 malignant neoplasm of colon (procedure) [code = 589932916] Future Scheduled 2023-04-29 Screening for [facility] Test 22:32:24 malignant neoplasm of colon (procedure) [code = 682284671] Future Scheduled 2023-04-29 Screening for [facility] Test 22:32:24 malignant neoplasm of colon (procedure) [code = 543338552] Future Scheduled 2023-04-29 Hepatitis C [facility]ital Test 22:32:24 screening (procedure) [code = 677835928] Future Scheduled 2023-04-29 [facility] for [facility] Test 22:32:24 malignant neoplasm of cervix (procedure) [code = 971344638] Future Scheduled 2023-04-29 BRE[facility] Test 22:32:24 SCREENING [code = BREAST CANCER SCREENING] Future Scheduled 2023-04-29 [facility] for [facility] Test 22:32:24 malignant neoplasm of colon (procedure) [code = 935315494] Future Scheduled 2023-04-29 [facility] for [facility] Test 22:32:24 malignant neoplasm of colon (procedure) [code = 522735705] Future Scheduled 2023-04-29 SHINGLES VACCINES [facility] Test 22:32:24 (1 of 2) [code = SHINGLES VACCINES (1 of 2)] Future Scheduled 2023-04-29 COVID-19 VACCINE (3 [facility] Test 22:32:24 - Pfizer series) [code = COVID-19 VACCINE (3 - Pfizer series)] Future Scheduled 2023-04-29 INFLUENZA VACCINE [facility] Test 22:32:24 (#1) [code = INFLUENZA VACCINE (#1)] Future Scheduled 2023-03-03 [facility] Test 06:39:02 malignant neoplasm of colon (procedure) [code = 279863239] Future Scheduled 2023-03-03 [facility] Test 06:39:02 malignant neoplasm of colon (procedure) [code = 100966068] Future Scheduled 2023-03-03 [facility] for [facility] Test 06:39:02 malignant neoplasm of colon (procedure) [code = 218223832] Future Scheduled 2023-03-03 [facility] Test 06:39:02 screening (procedure) [code = 951559408] Future Scheduled 2023-03-03 [facility] for [facility] Test 06:39:02 malignant neoplasm of cervix (procedure) [code = 801901552] Future Scheduled 2023-03-03 [facility]ER [facility] Test 06:39:02 SCREENING [code = BREAST CANCER SCREENING] Future Scheduled 2023-03-03 [facility] for [facility] Test 06:39:02 malignant neoplasm of colon (procedure) [code = 789487907] Future Scheduled 2023-03-03 [facility] for [facility] Test 06:39:02 malignant neoplasm of colon (procedure) [code = 417602069] Future Scheduled 2023-03-03 SHINGLES VACCINES [facility] Test 06:39:02 (1 of 2) [code = SHINGLES VACCINES (1 of 2)] Future Scheduled 2023-03-03 COVID-19 VACCINE (3 [facility] Test 06:39:02 - Pfizer series) [code = COVID-19 VACCINE (3 - Pfizer series)] Future Scheduled 2023-03-03 INFLUENZA VACCINE [facility] Test 06:39:02 [code = INFLUENZA VACCINE] Encounters Start End Encounter Admission Attending Care Care Encounter Source Date/Time Date/Time Type Type Clinicians Facility Department ID 2023-03-25 Outpatient [facility] [id number] [place] 06:04:26 [id number] [facility] 2023-03-15 Outpatient [facility] [id number] [place] 13:23:38 [id number] [facility] 2022-12-21 Outpatient [facility] [id number] [place] 13:47:09 [id number] [facility] 2022-12-10 Outpatient [facility] [id number] [place] 09:02:06 [id number] [facility] 2022-12-07 Outpatient [facility] [id number] [place] 09:47:23 [id number] [facility] 2022-12-06 Outpatient [facility] [id number] [place] 15:58:03 [id number] [facility] 2022-12-02 Outpatient [facility] [id number] [place] 10:23:19 [id number] [facility] 2022-11-30 Outpatient [facility] [id number] [place] 15:41:28 [id number] [facility] 2022-11-29 Outpatient [facility] [id number] [place] 16:41:49 [id number] [facility] 2022-11-25 Outpatient [facility] [id number] [place] 10:49:40 [id number] [facility] 2023-08-19 2023-08-19 Outpatient SHAZIA PATEL [facility] [id number] [place] 09:15:00 09:15:00 [facility] 2023-05-20 2023-05-20 Outpatient SHAZIA PATEL [facility] [id number] [place] 10:30:00 11:05:35 Health 2023-04-22 2023-04-22 Outpatient SHAZIA PATEL [facility] [id number] [place] 12:30:00 12:30:00 Health 2023-03-25 2023-03-25 Office Shazia Patel 1.2.840.114 [id number] [place] 13:30:00 14:30:35 Visit [facility]OWER 350.1.13.58 He alth 9.2.7.2.686 [id number] 3 2023-03-17 2023-03-17 Office Shazia Patel [facility] 1.2.840.114 [id number] [place] 14:45:00 16:04:17 Visit SUGAR 350.1.13.58 He alth [facility] 9.2.7.2.686 [address] 3 [id number] AND 3 WOMENS 2023-03-14 2023-03-14 Patient Brant, 1.2.840.1 [id number] [facility] 00:00:00 00:00:00 Outreach Genet 82382.1.[address] 3.430.2.7 Hospit a .3.313555 l .8 2023-03-08 2023-03-10 Hospital Shazia Patel 1.2.840.1 [id number] 2 [id number] [facility] 09:40:00 13:22:00 Encounter Marychuy 88921.1.[address] 3.430.2.7 Hospit a .3.453508 l .8 2023-03-08 2023-03-10 Inpatient SHAZIA PATEL [facility] [id number] [place] 00:00:00 00:00:[address] 2023-03-08 2023-03-08 Anesthesia Mini Faulkner 1.2.840.1 [id number] [facility] 12:23:00 19:11:00 Event Belkis Clancy 93245.1.[address] 3.430.2.7 Hospit a .3.292023 l .8 2023-03-08 2023-03-08 Surgery Shazia Patel 1.2.840.1 [id number] [facility] 12:00:00 19:05:[address] 3.430.2.7 Hospit a .3.501864 l .8 2023-03-08 2023-03-08 Outpatient PATEL, SHAZIA [facility] [id number] [place] 12:00:00 12:00:00 [facility] 2023-03-02 2023-03-07 Pre-Admiss Shazia Patel 1.2.840.1 10 [id number] [facility] 13:00:00 08:42:12 ion Belkis Clancy 19499.1.[address] Testing 3.430.2.7 Hospit a .3.030536 l .8 2023-03-02 2023-03-02 Pre-Admiss SHAZIA PATEL 1.2.840.1 [id number] [place] 00:00:00 00:00:00 ion 22077.1.1 [address] Meth rob [address] 3.[address].2.[address] .3.832660 .8 2023-01-10 2023-01-10 Office PatelShazia SATHISH GORDILLO 1.2.840.114 [id number] [place] 16:15:00 17:38:25 Visit TOWER 350.1.13.58 He alth 9.2.7.2.686 [id number] 3 2023-01-10 2023-01-10 Outpatient PATEL, [facility] [id number] [place] 16:15:00 16:15:00 [facility] 2023-01-07 2023-01-07 Outpatient PATEL, SHAZIA [facility] [id number] [place] 13:00:00 13:00:00 [facility] 2022-12-23 2022-12-23 Outpatient PATEL, [facility] [id number] [place] 12:30:00 12:30:00 [facility] 2022-12-06 2022-12-06 Office Patel, Shazia SATHISH GORDILLO 1.2.840.114 [id number] [place] 16:15:00 16:51:47 Visit TOWER 350.1.13.58 He alth 9.2.7.2.686 [id number] 3 2022-12-03 2022-12-03 Outpatient PATEL, [facility] [id number] [place] 11:15:00 11:15:00 Health Results Test Description Test Time Test Comments Results Result Comments Source Surgical pathology request 2023-03-10 20:41:21 Test Item Value Reference Range Interpretation Comme [facility] Case number (test code = 5374918) [id number] Surgical pathology report (test code = See link below for PDF Lab R eport 4203) Result status (test code = 7849012) This is Final Report for [id number] [facility] [id number] 12:52:00 Test Item Value Reference Range Interpretation Comments POC glucose (test 80 mg/dL 65-99 Cost Accounting Clerk N gaurang: Willie code = 45431-8) Neela Brower D: [id number] able: [facility] Notified RN [facility] Pre/Post [id number] 14:46:31 Test Item Value Reference Range Interpretation Comments Ventricular rate (test 65 code = 253) Atrial rate (test code = 65 255) MN interval (test code = 176 266) QRSD interval (test code 70 = 260) QT interval (test code = 386 264) QTC interval (test code 401 = 265) P axis 1 (test code = 39 267) QRS axis 1 (test code = 30 268) T wave axis (test code = 31 270) EKG impression (test Normal sinus code = 273) rhythm-Possible Anterior infarct , age undetermined-Abnormal ECG-No previous ECGs available-Electronica lly Signed By Zi Dee MD ([id number]) on 03/04/2023 9:46:26 AM [facility] [id number] 21:36:00 Test Item Value Reference Range Interpretation Comments Urine culture (test SEE COMMENT Bacteriu petr screen code = 5985186) negative. [facility] [id number] 21:36:00 Test Item Value Reference Range Interpretation Comments Urine culture (test SEE COMMENT Bacteriu petr screen code = 6905034) negative. Jameel MoserUTERUS,OTHER THAN PROLAPSE/[id number] 16:05:00 RUN DATE: 08/09/19 [facility] PAGE 1 RUN TIME: 1716 Specimen Inquiry RUN USER: INTERFACE --PATIENT: CAMPOS HIDALGO LOC: U #: [id number] AGE/SX: 53/F ROOM: [facility] RE08/08/19[facility] DR: Stan Kohler MD : 63 BED: A DIS: 08/09/19 STATUS: DIS Carlyle TLOC: SPEC #: [id number] RECD: 08/08/19 STATUS: YVETTE REBecky #: [id number] STEPHANIE: 08/08/19- SUBM DR: Stan Kohler MD ENTERED: 08/08/19 SP TYPE: UTERUSOTH OT : ORDERED: LEVEL V SURGICA CODES: A72898 - UTERUS, NOS PROCEDURES: LEVEL V SURGICA [...] tubes - benign paratubal cysts CPT code(s): 95614 [facility] 08/09/19 GROSS DESCRIPTION ANATOMIC SOURCE OF [...] weighs 104 gm. The serosa is chris, smooth,and glistening and contains a 2.7 cm subserosal, nodular lesion in the left upper posterior wall. The cervical external os measures 1.1 cm. The portio vaginalis measures 2.9 cm. Baller Tender sectionsare submitted in A1. The endometrium measures 0.2 [...] NEXT PAGE RUN DATE: 08/09/19 [facility] RUN TIME: 1716 Specimen Inquiry RUN USER: INTERFACE SPEC #: [id number] PATIENT: CAMPOS HIDALGO #[id number] (Continued) GROSS DESCRIPTION (Continued) wall. Baller Tender sections are submitted in A2 and A3. The right fallopian tube with fimbria measures 8 x 0.8 x 0.8 cm and contains a 1.5 cm semi-translucent paratubal cyst. The entire fimbria and two cross-sections of the tube with the cysts are submitt ed in A4. The left fallopian tube with fimbria measures 8 x 0.5 x 0.5 cm and contains paratubal cysts measuring up to 0.8 cm and parafimbrial yellow tissue measuring up to 1.0 cm. The entire fimbria with the yellow tissue and two cross- sections of the tube with the cysts are submitted in A5. hz/wpd 08/08/19 @ 1432 Signed Shelia Noland MD 08/09/19 1605 END OF REPORT [id number] 07:17:00 Test Item Value Reference Range Interpretation Comments GLUBED (test code = GLUBED) 106 mg/dL 65-110 N HGB [id number] 05:55:00 Test Item Value Reference Range Interpretation Comments HEMOGLOBIN (test code = HGB) 10.1 g/dL 10.7-13.9 L HEMATOCRIT (test code = HCT) 32.8 % 32.1-42.1 N [id number] 21:58:00 Test Item Value Reference Range Interpretation Comments GLUBED (test code = GLUBED) 131 mg/dL 65-110 H [id number] 10:55:00 Test Item Value Reference Range Interpretation Comments GLUBED (test code = GLUBED) 112 mg/dL 65-110 H [id number] 06:38:00 Test Item Value Reference Range Interpretation Comments GLUBED (test code = GLUBED) 83 mg/dL 65-110 N UR HCG [id number] 16:19:00 Test Item Value Reference Range Interpretation [...]
[2023-05-25] MEDS ORDERED: FAMOTIDINE 20 MG/2 ML VIAL IV ONE (19:40)
[2023-05-25] MEDS ORDERED: ONDANSETRON 4 MG/2 ML VIAL ONE (19:40)
[2023-05-25] MEDS ORDERED: NA CHLORIDE 0.9% 1,000 ML ONE (19:40)
[2023-05-25 19:58] LABS: Hematocrit 44.4 % (36.0-45.0); Lymphocytes % 19.6 % (15.3-44.8); MCV 82.9 fL (80-100); MPV 10.6 fL (7.6-11.3); Platelets 231 thou/uL (152-406); RBC Red Blood Cell Count 5.35 M/uL (3.86-4.86)
[2023-05-25 20:11] LABS: Specific Gravity > 1.030 (1.005-1.030); Urine Bacteria <20 /HPF (<20); Urine Bilirubin NEGATIVE (Negative); Urine Blood Negative (Negative); Urine Clarity Extremely Turbid (Clear); Urine Color Yellow (Yellow); Urine Glucose NEGATIVE (Negative); Urine Protein 1+ (Negative); Urine Urobilinogen 1+ (Normal); Urine pH 5.5 (5.0-7.0)
[2023-05-25 20:15] LABS: Albumin 3.6 g/dL (3.4-5.0); Bilirubin Total 2.3 mg/dL (0.2-1.0); Potassium 3.1 mEq/L (3.5-5.1); Protein, Total 7.9 g/dL (6.4-8.2)
--- NOTE | 2023-05-25 20:16 | RAD REPORT ---
EXAM DESCRIPTION: CT - Abdomen Pelvis W Contrast - 05/25/2023 7:52 pm CLINICAL HISTORY: Abdominal pain COMPARISON: October 2022 TECHNIQUE: Computed axial tomography of the abdomen pelvis was obtained. 100 cc Isovue-300 was admin istered intravenously. Oral contrast was not requested which limits evaluation of bowel and appendix All CT scans are performed using dose optimization technique as appropriate and may include automated exposure control or mA/KV adjustment according to patient size. FINDINGS: The liver, spleen, pancreas, adrenal and kidneys appear unremarkable. Cholecystectomy. Hysterectomy. No adnexal mass. Sigmoidectomy. The wall of portions of the right, transverse and left colon appear mildly thickened. There is no evidence of diverticulitis. IMPRESSION: Mild wall thickening of portions of the colon probably colitis
[2023-05-25] MEDS ORDERED: ONDANSETRON 4 MG/2 ML VIAL IV PRN (20:57)
--- NOTE | 2023-05-25 20:57 | ER ---
Nurse's Notes [facility] Name: Pao Hidalgo Age: 57 yrs Sex: Female : 1965 Arrival Date: 05/25/2023 Time: 19:09 Bed 7 Private MD: Tigre Brown Diagnosis: Colitis Presentation: 05/25 19:20 Chief complaint: Patient states: abdominal cramping and diarrhea onset Tuesday. Pt cm10 states that the pain is generalized. Pt had Sigmoid resection on 03/08/2023 and was told to come to the ED by Dr. Kaur. Coronavirus screen: Vaccine status: Patient reports receiving the 2nd dose of the covid vaccine. Client denies travel out of the [place] in the last 14 days. Ebola Screen: Patient denies travel to an Ebola-affected area in the 21 days before illness onset. No symptoms or risks identified at this time. Initial Sepsis Screen: Does the patient meet any 2 criteria? No. Patient's initial sepsis screen is negative. Does the patient have a suspected source of infection? No. Patient's initial sepsis screen is negative. Risk Assessment: Do you want to hurt yourself or someone else? Patient reports no desire to harm self or others. Onset of symptoms was May 25, 2023. 19:20 Method Of Arrival: Ambulatory cm10 19:20 Acuity: OSMAN 3 cm10 Triage Assessment: 19:23 General: Appears in no apparent distress. comfortable, Behavior is calm, cooperative. cm10 Pain: Complains of pain in abdomen Pain currently is 6 out of 10 on a pain scale. Quality of pain is described as aching, crampy. Neuro: No deficits noted. Level of Consciousness is awake, alert, obeys commands, Oriented to person, place, time, situation. Respiratory: No deficits noted. Airway is patent Respiratory effort is even, unlabored, Respiratory pattern is regular, symmetrical. 21:59 GI: Abdomen is non-distended. bp Historical: - Allergies: 19:22 No Known Allergies; cm10 - PMHx: 19:22 diabetes mellitus; cm10 - PSHx: 19:22 hysterectomy; tubal ligation; sigmoid resection; cm10 - Immunization history:: Adult Immunizations up to date. - Social history:: Smoking status: Patient denies any tobacco usage or history of. Screenin:[facility] ED Fall Risk Assessment (Adult) History of falling in the last 3 months, bp including since admission No falls in past 3 months (0 pts). Abuse screen: Denies threats or abuse. Denies injuries from another. Nutritional screening: No deficits noted. Tuberculosis screening: No symptoms or risk factors identified. Assessment: 21:59 GI: Bowel sounds present X 4 quads. Abd is soft X 4 quads. bp Vital Signs: 19:20 BP 123 / 68; Pulse 112; Resp 18 S; Temp 97.1(TE); Pulse Ox 98% on R/A; Weight 71.67 kg cm10 (R); Height 5 ft. 2 in. (R); Pain 6/10; 21:58 BP 91 / 74; Pulse 96; Resp 16; Pulse Ox 100% ; bp 22:12 BP 113 / 89; Pulse 89; Resp 16; Pulse Ox 100% on R/A; jb4 19:20 Body Mass Index 28.90 (71.67 kg, 157.48 cm) cm10 19:20 Pain Scale: Adult cm10 ED Course: 19:13 Patient arrived in ED. ag3 19:16 [facility] Germ[facility]C [facility] kb 19:16 Amos Medina MD is Attending Physician. kb 19:22 Triage completed. cm10 19:23 Arm band placed on Patient placed in an exam room, on a stretcher. cm10 19:24 Shady Negro, JU is Primary Nurse. bp 19:54 CT Abd/Pelvis - IV Contrast Only In Process Unspecified. EDMS 20:56 Tigre Brown MD is Private Physician. kb 20:56 Júnior Simental MD is Hospitalizing Provider. kb 21:30 Inserted saline lock: 22 gauge in right antecubital area, using aseptic technique. bp Blood collected. 21:58 No provider procedures requiring assistance completed. bp 21:59 Patient has correct armband on for positive identification. Bed in low position. Call bp light in reach. Side rails up X2. Adult w/ patient. Provided Education on: N/A. 21:59 Patient admitted, IV remains in place. bp Administered Medications: 19:41 Drug: NS 0.9% IV 1000 ml IV at 1 bolus Per protocol; 1000 mL bolus Route: IV; Rate: 1 bp bolus; Site: right antecubital; 19:41 Drug: Famotidine IVP 20 mg IVP once; dilute with 10 mL 0.9% NaCl; give over 2 minutes bp Route: IVP; Site: right antecubital; 19:41 Drug: Ondansetron IVP 4 mg IVP once; over 2 minutes Route: IVP; Site: right antecubital;bp 21:45 Drug: Potassium Chloride PO 40 mEq PO once Route: PO; bp 22:27 Follow up: Response: No adverse reaction bp 21:45 Drug: metroNIDAZOLE IVPB 500 mg 100 ml IVPB at 200 ml/hr once over 30 mins Volume: 100 bp ml; Route: IVPB; Rate: 200 ml/hr; Infused Over: 30 mins; Site: right antecubital; 22:27 Follow up: IV Status: Completed infusion; IV Intake: 100ml bp 22:26 Drug: Ciprofloxacin IVPB 400 mg 200 ml IVPB once over 60 mins Volume: 200 ml; Route: bp IVPB; Infused Over: 60 mins; Site: right antecubital; 22:48 Follow up: Response: Adverse reaction, Physician notified; IV Status: Order to kobe discontinue infusion; See MAR 22:48 Drug: MethylPrednisoLONE IVP 125 mg IVP once Route: IVP; Site: right antecubital; [facility] 22:48 Drug: diphenhydrAMINE IVP 25 mg IVP once Route: IVP; Site: right antecubital; kobe Intake: 22:27 IV: 100ml; Total: 100ml. bp Outcome: 20:56 Decision to Hospitalize by Provider. kb 23:13 Admitted to Med/surg accompanied by tech, via wheelchair, room 217, Report called to kobe Santos RN 23:13 Condition: stable 23:13 Discharge instructions given to patient, Instructed on the need for admit, Demonstrated understanding of instructions, 23:15 Patient left the ED. kobe Signatures: Dispatcher [employer] EDChichi Dorsey, COMPUTER REPAIR INSTRUCTOR-C COMPUTER REPAIR INSTRUCTOR-Gregory Neal, RN Shady Reis RN RN Malissa Moura Clarissa, RN RN cm10
--- NOTE | 2023-05-25 20:57 | EDPHYS ---
Physician Documentation [facility] Name: Pao Hidalgo Age: 57 yrs Sex: Female : 1965 Arrival Date: 05/25/2023 Time: 19:09 Bed 7 Private MD: Tigre Brown ED Physician Amos Medina HPI: 05/25 20:53 This 57 yrs old Female presents to ER via Ambulatory with complaints of kb Abdominal Pain. 20:53 The patient presents with abdominal pain that is diffuse. Onset: The symptoms/episode kb began/occurred 6 day(s) ago. The symptoms do not radiate. Associated signs and symptoms: Pertinent positives: diarrhea, nausea, Pertinent negatives: fever, vomiting. The symptoms are described as constant. Modifying factors: The symptoms are alleviated by nothing, the symptoms are aggravated by nothing. Severity of pain: At its worst the pain was mild moderate in the emergency department the pain is unchanged. The patient has not experienced similar symptoms in the past. The patient has not recently seen a physician. Pt reports abd pain and diarrhea for 6 days. Denies fever. Historical: - Allergies: 19:22 No Known Allergies; cm10 - PMHx: 19:22 diabetes mellitus; cm10 - PSHx: 19:22 hysterectomy; tubal ligation; sigmoid resection; cm10 - Immunization history:: Adult Immunizations up to date. - Social history:: Smoking status: Patient denies any tobacco usage or history of. ROS: 20:53 Constitutional: Negative for fever, chills, and weight loss, kb 20:53 Abdomen/GI: Positive for abdominal pain, diarrhea, Negative for nausea and vomiting, 20:53 All other systems are negative, Exam: 20:53 Constitutional: This is a well developed, well nourished patient who is awake, alert, kb and in no acute distress. Head/Face: Normocephalic, atraumatic. ENT: Moist Mucous membranes Cardiovascular: Regular rate Respiratory: Respirations even and unlabored. No increased work of breathing. Talking in full sentences Skin: Warm, dry with normal turgor. Normal color. MS/ Extremity: Pulses equal, no cyanosis. Neurovascular intact. Full, normal range of motion. Neuro: Awake and alert, GCS 15, oriented to person, place, time, and situation. Moves all extremities. Normal gait. 20:53 Abdomen/GI: Inspection: abdomen appears normal, Bowel sounds: normal, Palpation: soft, mild abdominal tenderness, in the right upper quadrant, left upper quadrant and left lower quadrant, Vital Signs: 19:20 BP 123 / 68; Pulse 112; Resp 18 S; Temp 97.1(TE); Pulse Ox 98% on R/A; Weight 71.67 kg cm10 (R); Height 5 ft. 2 in. (R); Pain 6/10; 21:58 BP 91 / 74; Pulse 96; Resp 16; Pulse Ox 100% ; bp 22:12 BP 113 / 89; Pulse 89; Resp 16; Pulse Ox 100% on R/A; jb4 19:20 Body Mass Index 28.90 (71.67 kg, 157.48 cm) cm10 19:20 Pain Scale: Adult cm10 MDM: 19:16 Patient medically screened. kb 20:54 Differential diagnosis: bowel obstruction, diverticulitis, gastritis, non-specific abd kb pain, colitis. Data reviewed: vital signs, nurses notes. Consideration of Admission/Observation Patient was admitted/placed on observation. Escalation of care including admission/observation considered. Management of patient was discussed with the following: Hospitalist: CARLTON Adames accepts pt for admission under Dr Simental. [place] Operator: Dr Kaur called and requested pt be admitted. Counseling: I had a detailed discussion with the patient and/or guardian regarding the historical points, exam findings, and any diagnostic results supporting the discharge/admit diagnosis, lab results, radiology results, the need for further work-up and treatment in the hospital. 05/25 19:22 Order name: CBC with Diff; Complete Time: 20:03 kb 05/25 19:22 Order name: CMP; Complete Time: 20:17 kb 05/25 19:22 Order name: Lipase; Complete Time: 20:17 kb 05/25 19:22 Order name: Urinalysis w/ reflexes; Complete Time: 20:13 kb 05/25 21:01 Order name: Basic Metabolic Panel EDMS 05/25 21:01 Order name: Basic Metabolic Panel EDMS 05/25 21:01 Order name: Basic Metabolic Panel EDMS 05/25 21:01 Order name: Basic Metabolic Panel EDMS 05/25 21:01 Order name: CBC with Automated Diff EDMS 05/25 21:01 Order name: CBC with Automated Diff EDMS 05/25 21:01 Order name: CBC with Automated Diff EDMS 05/25 21:01 Order name: CBC with Automated Diff EDMS 05/25 21:01 Order name: Phosphorus EDMS 05/25 21:01 Order name: Phosphorus EDMS 05/25 21:01 Order name: Phosphorus EDMS 05/25 21:02 Order name: Phosphorus EDMS 05/25 19:22 Order name: CT Abd/Pelvis - IV Contrast Only; Complete Time: 20:18 kb 05/25 21:01 Order name: CONS Physician Consult EDMS 05/25 19:22 Order name: IV Saline Lock; Complete Time: 19:42 kb 05/25 19:22 Order name: Labs collected and sent; Complete Time: 19:42 kb Administered Medications: 19:41 Drug: NS 0.9% IV 1000 ml IV at 1 bolus Per protocol; 1000 mL bolus Route: IV; Rate: 1 bp bolus; Site: right antecubital; 19:41 Drug: Famotidine IVP 20 mg IVP once; dilute with 10 mL 0.9% NaCl; give over 2 minutes bp Route: IVP; Site: right antecubital; 19:41 Drug: Ondansetron IVP 4 mg IVP once; over 2 minutes Route: IVP; Site: right antecubital;bp 21:45 Drug: Potassium Chloride PO 40 mEq PO once Route: PO; bp 22:27 Follow up: Response: No adverse reaction bp 21:45 Drug: metroNIDAZOLE IVPB 500 mg 100 ml IVPB at 200 ml/hr once over 30 mins Volume: 100 bp ml; Route: IVPB; Rate: 200 ml/hr; Infused Over: 30 mins; Site: right antecubital; 22:27 Follow up: IV Status: Completed infusion; IV Intake: 100ml bp 22:26 Drug: Ciprofloxacin IVPB 400 mg 200 ml IVPB once over 60 mins Volume: 200 ml; Route: bp IVPB; Infused Over: 60 mins; Site: right antecubital; 22:48 Follow up: Response: Adverse reaction, Physician notified; IV Status: Order to jb discontinue infusion; See OCT 22:48 Drug: MethylPrednisoLONE IVP 125 mg IVP once Route: IVP; Site: right antecubital; jb4 22:48 Drug: diphenhydrAMINE IVP 25 mg IVP once Route: IVP; Site: right antecubital; jb4 Disposition Summary: 05/25/23 20:56 Hospitalization Ordered Notes: Hospitalization Status: Observation kb Provider: Júnior Simental Location: Telemetry/MedSurg (observation) kb Condition: Stable kb Problem: new kb Symptoms: are unchanged kb Bed/Room Type: Standard kb Room Assignment: 217(05/25/23 21:11) cg Diagnosis - Colitis kb Forms: - Medication Reconciliation Form kb - SBAR form kb - Leadership Thank You Letter kb Signatures: Dispatcher [employer] EDChichi Dorsey, PRESSURISED CONTAINER FILLER-C PRESSURISED CONTAINER FILLER-Vanesa Nava, RN RN cg Gregory Hill RN RN jb4 Shady Negro, RN RN bp Shanita Robles RN RN cm10 Corrections: (The following items were deleted from the chart) 21:11 20:56 kb cg
[2023-05-25] MEDS ORDERED: CIPROFLOXACIN 400mg IV 400 MG/200 ML BAG IV SCH (22:00)
[2023-05-25] MEDS ORDERED: METRONIDAZOLE 500mg IVPB 500 MG/100 ML BAG IV ONE (22:03)
[2023-05-25] MEDS ORDERED: CIPROFLOXACIN 400mg IV 400 MG/200 ML BAG IV ONE (22:03)
[2023-05-25] MEDS ORDERED: POTASSIUM CL SA 10 MEQ TAB PO ONE (22:03)
--- NOTE | 2023-05-25 22:52 | P.HP ---
Certification for Inpatient Patient admitted to: Inpatient With expected LOS: <2 Midnights Patient will require the following post-hospital care: None Practitioner: I am a practitioner with admitting privileges, knowledge of patient current condition, hospital course, and medical plan of care. Services: Services provided to patient in accordance with Admission requirements found in Title 42 Section 412.3 of the Code of Federal Regulations Patient History Date of Service: 05/25/23 Reason for admission: Abdominal pain with diarrhea History of Present Illness: 57-year-old female with a past medical history of diverticulitis with sigmoid resection, diabetes presents to the emergency room with diffuse abdominal pain. Reports left upper quadrant left lower quadrant, epigastric tenderness. She reports symptoms started 6 days ago has progressively gotten worse. reports associated diarrhea multiple stools daily 5-10. She reports associated nausea, no vomiting, She denies rectal bleeding, denies shortness of breath, fever, chest pain. She reports diverticulitis with sigmoid resection 6 month ago. She reports p.o. intake makes symptoms worse. She reports as needed analgesics in the emergency room help relieve symptoms. Plan to admit for colitis, abdominal pain with nausea vomiting. VS BP 123 / 68; Pulse 112; Resp 18 S; Temp 97.1(TE); Pulse Ox 98% T of the abdomen pelvis IMPRESSION: Mild wall thickening of portions of the colon probably colitis laboratory evaluation leukocytosis 15.20, no left shift, mild hyponatremia 131 mild hypokalemia 3.1, UA 25 leukoesterase, Allergies ciprofloxacin Allergy (Intermediate, Verified 05/25/23 22:57) Hives Home Medications: Tirzepatide [Mounjaro] 5 mg SQ EVERY 7TH DAY 11/15/22 - Past Medical/Surgical History Diabetic: No -: Diabetes mellitus type 2 -: Diverticulitis is with a sigmoid resection 2022 -: TUBIAL LIGATION - Social History Alcohol use: Yes CD- Drugs: No Caffeine use: Yes Review of Systems 10-point ROS is otherwise unremarkable Physical Examination - Physical Exam General: Alert, In no apparent distress, Oriented x3 HEENT: Atraumatic, Normocephalic Neck: Supple, 2+ carotid pulse no bruit, JVD not distended Respiratory: Clear to auscultation bilaterally, Normal air movement Cardiovascular: No edema, Normal pulses, Regular rate/rhythm Gastrointestinal: Other (Left upper quadrant, left lower quadrant, epigastric tenderness), Tenderness Musculoskeletal: No clubbing, No swelling Integumentary: No rashes, No breakdown Neurological: Normal speech, Normal strength at 5/5 x4 extr - Studies Laboratory Data (last 24 hrs) 05/25/23 05/25/23 19:40 19:40 WBC 15.20 H Hgb 15.2 H Hct 44.4 Plt Count 231 Sodium 135 L Potassium 3.1 L BUN 12 Creatinine 0.74 Glucose 116 H Total Bilirubin 2.3 H AST 21 ALT 25 Alkaline Phosphatase 87 Lipase 14 Assessment and Plan - Plan Assessment plan acute colitis History diverticulitis with silk sigmoid resection Noninsulin-dependent Diabetes Leukocytosis secondary to colitis Hyponatremia hypokalemia DVT prophylaxis Assessment plan acute colitis History diverticulitis with silk sigmoid resection Leukocytosis secondary to colitis Surgery consult, n.p.o. after midnight IV antibiotics, as needed antiemetics, PPI, as needed analgesics CT of the abdomen pelvis IMPRESSION: Mild wall thickening of portions of the colon probably colitis laboratory evaluation leukocytosis 15.20, no left shift,UA 25 leukoesterase, Noninsulin-dependent Diabetes Sliding scale insulin, Accu-Cheks Hyponatremia hypokalemia Trend electrolytes replace as needed mild hyponatremia 131 mild hypokalemia 3.1, DVT prophylaxis Diet n.p.o. Full code Discharge Plan: Home Plan to discharge in: 48 Hours - Advance Directives Does patient have a Living Will: No Does patient have a Durable POA for Healthcare: No - Code Status/Comfort Care Code Status: Full Code Physician Review: Patient Assessed, Agree with Above Assessment and Plan Critical Care: No Time Spent Managing Pts Care (In Minutes): 50
[2023-05-25] MEDS ORDERED: DIPHENHYDRAMINE 50 MG/ML VIAL IV PRN (22:54)
[2023-05-25] MEDS ORDERED: SODIUM CHLORIDE 0.9% 10ML INJ IV PRN (22:55)
[2023-05-25] MEDS ORDERED: DIPHENHYDRAMINE 50 MG/ML VIAL ONE (22:56)
[2023-05-25] MEDS ORDERED: METHYLPREDNISOLONE 125 MG INJ ONE (22:56)
[2023-05-25] MEDS ORDERED: D50W 25 GM/50 ML SYRINGE IV PRN (23:20)
[2023-05-25] MEDS ORDERED: GLUCAGON 1 MG/VIAL IM PRN (23:20)
[2023-05-25] MEDS ORDERED: D10W 125 ML IV PRN (23:35)
[2023-05-26] MEDS: CEFEPIME 1 GM in NA CHLORIDE 0.9% 100 ML IV SCH ×2 (00:17→09:49)
[2023-05-26] MEDS: NA CHLORIDE 0.9% 1,000 ML IV SCH ×2 (00:17→15:08)
[2023-05-26] MEDS: METHYLPREDNISOLONE 125 MG INJ IV SCH ×4 (00:18→17:55)
[2023-05-26] MEDS: METRONIDAZOLE 500mg IVPB 500 MG/100 ML BAG IV SCH ×5 (00:59→21:50)
[2023-05-26 01:41] VITALS: O2SAT 100; BMI 29.0
[2023-05-26 03:09] LABS: Absolute Lymphocytes (CBC) 0.9 K/uL (0.7-4.9); Hematocrit 40.3 % (36.0-45.0); MCV 83.1 fL (80-100); MPV 10.3 fL (7.6-11.3); Platelets 208 thou/uL (152-406); RBC Red Blood Cell Count 4.86 M/uL (3.86-4.86)
[2023-05-26 03:23] LABS: Phosphorus 2.4 mg/dL (2.5-4.9); Potassium 3.6 mEq/L (3.5-5.1)
[2023-05-26] MEDS ORDERED: KCL 20 MEQ/100 mL IVPB 20 MEQ/100 ML BAG IV SCH (06:00)
[2023-05-26] MEDS: INSULIN REGULAR (HUMAN) 100 UNIT/ML SQ SCH ×4 (07:30→22:08)
[2023-05-26] MEDS ORDERED: PNEUMOCOCCAL VACCINE 0.5 ML IMVAC ONE (08:00)
[2023-05-26] MEDS ORDERED: INFLUENZA VACCINE (for 6+ mo) 0.5 ML DOSE IMVAC ONE (08:00)
[2023-05-26] MEDS ORDERED: POTASSIUM PHOS IN 0.9 % NACL 15 MMOL/250 ML BAG IV ONE (09:00)
[2023-05-26] MEDS: PANTOPRAZOLE 40 MG INJ IVP SCH ×2 (09:00→21:45)
[2023-05-26] MEDS: ACETAMINOPHEN 325 MG TABLET PO PRN ×3 (09:48→21:39)
--- NOTE | 2023-05-26 12:44 | CON ---
Date of Consultation: 05/26/2023 Reason For Consultation: Abdominal pain. History Of Present Illness: The patient is a 57-year-old female with past medical history of recurre nt diverticulitis with recent sigmoid resection laparoscopically done in [place] approximately 3 evonne hs ago, was doing well up until last week and started having diffuse abdominal crampy pain associated with loose stools 5-10 times a day and nausea, but no vomiting. No rectal bleeding. No sore throat , runny nose, cough, headaches, dizziness. No chest pain. No fever or chills. She saw her surgeon last week and was cleared and was doing well. Review of Systems: Otherwise unremarkable. Past Medical History: Type 2 diabetes, diverticulosis. Past Surgical History: Laparoscopic sigmoid resection and bilateral tubal ligation. Allergies: INCLUDE CIPRO. Medications: Reviewed. Social History: The patient does not smoke. Drinks occasionally. Family History: Noncontributory. Physical Examination: Vital Signs: Currently stable. She is afebrile. General: She is awake, alert, oriented x3. Head and Neck: Cranial nerves 2 through 12 grossly within normal limits. No neck masses. No JVD. Throat clear. Neck is supple. Chest: Clear. Heart: S1, S2. Abdomen: Soft, nondistended. Positive bowel sounds. Minimal diffuse tenderness, but no rebound, ri gidity, or guarding. No abdominal wall hernia appreciated. Extremities: Adequately perfused. Nontender. Neurologic: Nonfocal. Laboratory Data: White count was 15.2 yesterday, today is 14.2 with a left shift. Chemistry reviewe d. Phosphorus is slightly low, is being replaced. CT of the abdomen and pelvis shows mild colitis o f the right colon, transverse colon, and left colon. No evidence of diverticulitis. Assessment: Possible pancolitis with history of diarrhea. Recommendations: Admit n.p.o., IV fluid, IV antibiotics. We will check the stool with te st to see if she would qualify for C difficile testing and serial abdominal exams. She does not need any surgical intervention at this time. Medical management should suffice. We will follow this pat ient while in the hospital. /MODL Voice ID: [id number] Report ID: [id number]
[2023-05-26] MEDS: CEFEPIME 2 GM in NA CHLORIDE 0.9% 100 ML IV SCH (21:38)
[2023-05-27 03:18] LABS: Absolute Lymphocytes (CBC) 1.5 K/uL (0.7-4.9); Hematocrit 38.2 % (36.0-45.0); Lymphocytes % 7.8 % (15.3-44.8); MCV 82.4 fL (80-100); Platelets 207 thou/uL (152-406); RBC Red Blood Cell Count 4.63 M/uL (3.86-4.86)
[2023-05-27 03:40] LABS: Phosphorus 1.9 mg/dL (2.5-4.9); Potassium 3.2 mEq/L (3.5-5.1)
[2023-05-27] MEDS: METHYLPREDNISOLONE 125 MG INJ IV SCH ×2 (04:42→06:00)
[2023-05-27] MEDS: METRONIDAZOLE 500mg IVPB 500 MG/100 ML BAG IV SCH (06:43)
[2023-05-27] MEDS: INSULIN REGULAR (HUMAN) 100 UNIT/ML SQ SCH ×4 (07:30→21:00)
[2023-05-27] MEDS ORDERED: POTASSIUM CL SA 10 MEQ TAB PO ONE (07:40)
[2023-05-27] MEDS: CEFEPIME 2 GM in NA CHLORIDE 0.9% 100 ML IV SCH (08:27)
[2023-05-27] MEDS: PANTOPRAZOLE 40 MG INJ IVP SCH ×2 (08:27→21:12)
[2023-05-27] MEDS: POTASS/SODIUM PHOSPHATE 1 PKT POWD.PACK PO SCH ×3 (08:27→08:31)
[2023-05-27] MEDS: NA CHLORIDE 0.9% 1,000 ML IV SCH (09:27)
[2023-05-27 09:59] LABS: C.diff Antigen/Toxin Ag pos : Tox pos (NEG : NEG)
[2023-05-27] MEDS ORDERED: METHYLPREDNISOLONE 125 MG INJ IV SCH (10:00)
--- NOTE | 2023-05-27 13:56 | PN ---
Date of Progress Note: 05/27/2023 Subjective: The patient is awake, alert, feels a little better. No further diarrhea. C difficile i s pending. Tolerating clear liquids but is hungry. Objective: Vital Signs: Stable. Afebrile. White count is 19,000. Please note, the patient is on IV steroids. Abdomen: Soft, nondistended. Minimal tenderness. No rebound, rigidity, or guarding. Assessment: Colitis, awaiting Clostridium difficile results. Recommendations: Discussed the case with Dr. Simental. I do not think the patient needs to be on steroi ds at this time. Continue IV antibiotics. Advance diet slowly. If the C difficile is negative, the patient can be discharged to home tomorrow with followup with her colorectal surgeon in about a evonne h. /MODL Voice ID: [id number] Report ID: [id number]
[2023-05-27] MEDS: VANCOMYCIN ORAL SOLN 250 MG/5 ML OSYR PO SCH (18:16)
[2023-05-28] MEDS: NA CHLORIDE 0.9% 1,000 ML IV SCH ×4 (00:59→16:59)
[2023-05-28] MEDS: VANCOMYCIN ORAL SOLN 250 MG/5 ML OSYR PO SCH ×3 (00:59→16:59)
[2023-05-28 04:24] LABS: Absolute Lymphocytes (CBC) 2.7 K/uL (0.7-4.9); Hematocrit 41.1 % (36.0-45.0); Lymphocytes % 13.3 % (15.3-44.8); MCV 83.7 fL (80-100); Platelets 231 thou/uL (152-406)
[2023-05-28 04:27] LABS: Phosphorus 2.5 mg/dL (2.5-4.9); Potassium 3.5 mEq/L (3.5-5.1)
[2023-05-28] MEDS: INSULIN REGULAR (HUMAN) 100 UNIT/ML SQ SCH ×4 (07:30→20:09)
[2023-05-28] MEDS: PANTOPRAZOLE 40 MG INJ IVP SCH ×2 (08:30→20:19)
[2023-05-28] MEDS: POTASS/SODIUM PHOSPHATE 1 PKT POWD.PACK PO SCH ×3 (08:35→10:45)
[2023-05-28] MEDS ORDERED: POTASSIUM CL SA 10 MEQ TAB PO ONE (09:00)
--- NOTE | 2023-05-28 13:08 | PN ---
Date of Progress Note: 05/28/2023 Subjective: Patient is awake, alert. She has pain with bowel movement, but no pain otherwise. She had 8 episodes of small diarrhea yesterday. Her C difficile toxin and antigen were positive and she is on vancomycin orally. Her white count is still 20,000. However, she was given steroids yesterday . Objective: Vital Signs: Stable. She is afebrile. Abdomen: Completely benign. No tenderness. No rebound. No rigidity. No guarding. Assessment: Clostridium difficile colitis. Recommendations: Oral vancomycin as ordered. I discussed the case with Dr. Simental. He will repeat th e CBC this afternoon, should be decreasing. The patient will be discharged home with oral vancomycin and followup with a colorectal surgeon in a couple of weeks. Patient from a surgical standpoint is cleared for discharge as she is tolerating diet and has no peritonitis. /MODL Voice ID: [id number] Report ID: [id number]
[2023-05-28 13:55] LABS: Absolute Lymphocytes (CBC) 3.9 K/uL (0.7-4.9); Hematocrit 40.6 % (36.0-45.0); Lymphocytes % 28.2 % (15.3-44.8); MCV 84.8 fL (80-100); MPV 10.9 fL (7.6-11.3); Platelets 193 thou/uL (152-406); RBC Red Blood Cell Count 4.79 M/uL (3.86-4.86)
[2023-05-29] MEDS: VANCOMYCIN ORAL SOLN 250 MG/5 ML OSYR PO SCH ×2 (01:00→09:18)
[2023-05-29 04:01] LABS: Phosphorus 3.4 mg/dL (2.5-4.9); Potassium 3.6 mEq/L (3.5-5.1)
[2023-05-29] MEDS: INSULIN REGULAR (HUMAN) 100 UNIT/ML SQ SCH ×2 (07:30→11:30)
[2023-05-29] MEDS ORDERED: POTASSIUM CL SA 10 MEQ TAB PO ONE (08:39)
[2023-05-29] MEDS: PANTOPRAZOLE 40 MG INJ IVP SCH (09:20)
[2023-05-29 12:07] VITALS: BP 115/67; TEMP 97.5
== END 2023-05-29 15:22 | disposition home or self-care (01) | DRG 372 ==
LOC: ER 19:09 → 2ND 20:56
PROVIDERS: ADMIT Hospitalist; ATTEND Hospitalist
DX: A04.72 Enterocolitis due to Clostridium difficile, not specified as recurrent (principal); E87.1 Hypo-osmolality and hyponatremia; E11.9 Type 2 diabetes mellitus without complications; E87.6 Hypokalemia; Z88.1 Allergy status to other antibiotic agents; Z98.51 Tubal ligation status; Z90.49 Acquired absence of other specified parts of digestive tract; Z79.899 Other long term (current) drug therapy; Z90.710 Acquired absence of both cervix and uterus
CPT/HCPCS: 36415; 74177; 80048; 80053; 81001; 82565; 82947; 83690; 84100; 84132; 85025; 87324; 96365; 96375; 99285; C9113; J0692; J0744; J1200; J1815; J2405; J2930; J3480; J7030; Q9967